=== PATIENT | male | born 1990 | race Caucasian/White ===

== ENCOUNTER 2017-02-18 02:07 | Emergency (ER) | payer SELFPAY ==
[2017-02-18] MEDS ORDERED: Ketorolac 60 MG/2 ML SDV ONE (02:34)
[2017-02-18] MEDS ORDERED: Penicillin V Potassium 500 MG Tab ONE (02:34)
[2017-02-18 04:25] VITALS: BP 141/93
--- NOTE | 2017-02-18 05:00 | EDM.PDOC ---
ED HPI GENERAL MEDICAL PROBLEM - General Chief Complaint: General Stated Complaint: JAW/FACE PAIN Time Seen by Provider: 02/18/17 04:20 Source of Information: Reports: Patient History Limitations: Reports: No limitations - History of Present Illness INITIAL COMMENTS - FREE TEXT/NARRATIVE: HISTORY AND PHYSICAL: History of present illness: [] Review of systems: As per history of present illness and below otherwise all systems reviewed and negative. Past medical history: As per history of present illness and as reviewed below otherwise noncontributory. Surgical history: As per history of present illness and as reviewed below otherwise noncontributory. Social history: No reported history of drug or alcohol abuse. Family history: As per history of present illness and as reviewed below otherwise noncontributory. Physical exam: Well Appearing patient indicating pain in the distribution of # 10 and #11. No adjacent gingival abnormality. No swelling no soft tissue tenderness no facial crepitus or fluctuance. Normal appearing face. Supple neck. Painless extraocular muscle excursion HEENT: Normocephalic, atraumatic, pupils normal and symmetrical, supple neck, no meningismus, normal color Lungs: Normal and symmetrical chest wall excursion bilateral with no tachypnea or increased work of breathing, grossly normal chest exam Heart: No tachycardia in triage Abdomen: Normal-appearing, nondistended, no visible mass or asymmetry Pelvis: Normal-appearing Genitourinary: Deferred Rectal exam: Deferred Extremities: Atraumatic, normal use and range of motion, no visible evidence of gross neurovascular compromise Neuro: Awake, alert, oriented. Normal and appropriate mental status. Cranial nerves grossly unremarkable. Motor function normal. Nonfocal neurologic exam. Diagnostics: [] Therapeutics: Penicillin by mouth and Toradol intramuscular Impression: Toothache Plan: [Patient with toothache. Normal-appearing intraoral exam with mild tenderness to the dentition indicated. Well-appearing patient no infectious prodrome and no systemic symptoms. Prednisone given in ED and prescribed. Is aware to take NSAIDs and followup with dentist as soon as possible. No further workup or treatment indicated patient agrees with outpatient followup. Strict return precautions given] Definitive disposition and diagnosis as appropriate pending reevaluation and review of above. Left Tooth/Teeth Pain Score (Numeric/FACES): 6 - Related Data Allergies Allergy/AdvReac Type Severity Reaction Status Date / Time No Known Allergies Allergy Verified 02/18/17 04:21 Home Meds: Home Meds . [No Known Home Meds] 02/18/17 [History] Past Medical History - Past Health History Medical/Surgical History: Denies Medical/Surgical History Social & Family History - Tobacco Use Smoking Status *Q: Current Every Day Smoker Years of Tobacco use: 3 Packs/Tins Daily: 0.1 - Caffeine Use Caffeine Use: Reports: None - Recreational Drug Use Recreational Drug Use: No ED ROS GENERAL - Review of Systems Review Of Systems: See Below (History of present illness) ED EXAM, GENERAL - Physical Exam Exam: See Below (History of present illness) Course - Vital Signs Last Recorded V/S: Last Vital Signs Temp 36.2 C 02/18/17 04:21 Pulse 48 L 02/18/17 04:21 Resp 18 02/18/17 04:21 BP 141/93 H 02/18/17 04:21 Pulse Ox 96 02/18/17 04:21 Departure - Departure Time of Disposition: 03:00 Disposition: Home, Self-Care 01 Condition: good Clinical Impression: Toothache Forms: ED Department Discharge
== END 2017-02-18 05:01 | disposition home or self-care (01) ==
LOC: MW.ED 02:07
DX: K08.89 Other specified disorders of teeth and supporting structures (principal); F17.210 Nicotine dependence, cigarettes, uncomplicated
CPT/HCPCS: 96372; 99282-25; 99283